=== PATIENT | male | born 1980 | race Caucasian/White ===

== ENCOUNTER 2016-09-12 17:51 | Emergency (ER) | payer BC ==
[~2016-09-12] VITALS: Wt 54.4 kg
[~2016-09-12 17:51] MED LIST: CEPHALEXIN500 M1 PO; ELIMITE5% T; Motrin,Rufen800 MG PO; PENICILLIN-VK500 MG PO; TYLENOL325 M1 PO
[2016-09-12] MEDS ORDERED: NAPROSYN500 MG PO (18:31)
== END 2016-09-12 18:27 | disposition home or self-care (01) ==
LOC: ED 17:51
DX: G56.22 Lesion of ulnar nerve, left upper limb (principal)

== ENCOUNTER → 2017-12-10 | Outpatient (CLI) | payer BC ==
[~2017-12-10] MED LIST changes: +CYCLOBENZAPRINE5 M3 PO; +NAPROSYN500 MG PO
[2017-12-10 09:57] LABS: BASO % 0.3 % (0.0-1.0); EOS # 0.4 10*3/uL (0.0-0.4); EOS % 5.8 % (1.0-4.0); HEMATOCRIT 42.7 % (42.0-52.0); HEMOGLOBIN 13.9 g/dl (14.0-18.0); LYMPH # 1.8 10*3/uL (1.3-4.4); LYMPH % 28.5 % (27.0-41.0); MEAN CELL VOLUME 86.1 fl (80.0-94.0); MEAN CORPUSCULAR HGB CONC 32.6 g/dl (33.0-37.0); MEAN PLATELET VOLUME 10.4 fl (9.6-12.3); MONO # 0.5 10*3/uL (0.1-1.0); MONO % 8.5 % (3.0-9.0); NEUT # 3.6 10*3/uL (2.3-7.9); NEUT % 56.7 % (47.0-73.0); PLATELET COUNT AUTOMATED 233 10*3/uL (130-400); RED BLOOD COUNT 4.96 10*6/uL (4.50-5.90); RED CELL DISTRI WIDTH 12.8 % (0-14.5); WHITE BLOOD COUNT 6.3 10*3/uL (4.8-10.8)
[2017-12-10 10:07] LABS: BUN 19 mg/dl (7-24); CHLORIDE 104 mmol/L (98-107); CHOLESTEROL 150 mg/dL (<200); CREATININE 0.88 mg/dL (0.70-1.30); POTASSIUM 3.7 mmol/L (3.5-5.1); SGOT/AST 17 IU/L (3-35); SGPT/ALT 25 U/L (12-78); SODIUM 139 mmol/L (136-145); TRIGLYCERIDES 56 mg/dl (<150); VLDL CHOLESTEROL 11 mg/dL (6-40)
[2017-12-10 10:17] LABS: ALKALINE PHOSPHATASE 69 U/L (45-117); HDL CHOLESTEROL 67 mg/dl (40-60); LDL CHOLESTEROL 72 mg/dL (9-159); TOTAL PROTEIN 7.6 gm/dL (6.4-8.2)
[2017-12-10 10:31] LABS: FREE T4 0.82 ng/dl (0.76-1.46)
[2017-12-10 10:42] LABS: VITAMIN D, 25-HYDROXY 19.4 ng/mL (30-100)
== END | disposition home or self-care (01) ==
LOC: RESCLI 01:47
PROVIDERS: Internal Medicine
DX: M40.46 Postural lordosis, lumbar region (principal); R03.0 Elevated blood-pressure reading, without diagnosis of hypertension; G89.29 Other chronic pain; Z88.8 Allergy status to other drugs, medicaments and biological substances

== ENCOUNTER → 2017-12-24 | Outpatient (CLI) | payer BC | END | disposition home or self-care (01) | LOC: RESCLI 03:45 | DX: M54.9 Dorsalgia, unspecified (principal); G89.29 Other chronic pain; Z88.8 Allergy status to other drugs, medicaments and biological substances ==

== ENCOUNTER 2018-01-08 18:29 | Emergency (ER) | payer BC ==
[~2018-01-08] VITALS: Wt 68.0 kg
[~2018-01-08 18:29] MED LIST changes: -CYCLOBENZAPRINE5 M3 PO
[2018-01-08] MEDS ORDERED: CYCLOBENZAPRINE5 M3 PO (18:33)
[2018-01-08 18:54] LABS: BASO % 0.1 % (0.0-1.0); HEMATOCRIT 47.8 % (42.0-52.0); HEMOGLOBIN 15.9 g/dl (14.0-18.0); LYMPH # 0.7 10*3/uL (1.3-4.4); MEAN CELL VOLUME 83.9 fl (80.0-94.0); MEAN CORPUSCULAR HGB 27.9 pg (27.0-31.0); MEAN CORPUSCULAR HGB CONC 33.3 g/dl (33.0-37.0); MEAN PLATELET VOLUME 9.9 fl (9.6-12.3); MONO # 1.1 10*3/uL (0.1-1.0); MONO % 6.4 % (3.0-9.0); NEUT # 15.6 10*3/uL (2.3-7.9); NEUT % 89.2 % (47.0-73.0); PLATELET COUNT AUTOMATED 253 10*3/uL (130-400); RED CELL DISTRI WIDTH 12.2 % (0-14.5); WHITE BLOOD COUNT 17.5 10*3/uL (4.8-10.8)
[2018-01-08 19:04] LABS: ACT PARTIAL THROMBO TIME 21.2 SECONDS (20.8-31.5); INTERNATIONAL NORM RATIO 1.1 (2.0-3.5)
[2018-01-08 19:09] LABS: ALBUMIN 4.3 gm/dl (3.1-4.5); ALKALINE PHOSPHATASE 85 U/L (45-117); BUN 15 mg/dl (7-24); CHLORIDE 101 mmol/L (98-107); CREATININE 1.16 mg/dL (0.70-1.30); LIPASE 97 U/L (73-393); POTASSIUM 3.9 mmol/L (3.5-5.1); SGOT/AST 13 IU/L (3-35); SGPT/ALT 22 U/L (12-78); SODIUM 137 mmol/L (136-145)
[2018-01-08 21:17] LABS: BILIRUBIN NEGATIVE (NEGATIVE); BLOOD NEGATIVE (NEGATIVE); CLARITY CLEAR (CLEAR); COLOR YELLOW (YELLOW); GLUCOSE NEGATIVE (NEGATIVE); KETONE 1+ (NEGATIVE); LEUKO ESTERASE NEGATIVE (NEGATIVE); NITRITE NEGATIVE (NEGATIVE); SPECIFIC GRAVITY <= 1.005 (1.005-1.030); UROBILINOGEN 0.2 E.U./dl (0.2-1.0)
[2018-01-08 21:27] LABS: BACTERIA 1+; EPITHELIAL CELLS 0-2; WBC 0-2 wbc/hpf (0-5)
== END 2018-01-08 22:10 ==
LOC: ED 18:29
PROVIDERS: Emergency Medicine
DX: K38.1 Appendicular concretions (principal); R51 Headache; Z79.1 Long term (current) use of non-steroidal anti-inflammatories (NSAID)

== ENCOUNTER → 2018-02-04 | Outpatient (CLI) | payer BC ==
[~2018-02-04] MED LIST changes: +CYCLOBENZAPRINE5 M3 PO
--- NOTE | ~2018-02-04 | EKG ---
[place], [place] ELECTROCARDIOGRAM REPORT NAME: BRITTANY FLORES UNIT #: [id number] ROOM: DOCTOR: EPIPHANY DRAFT REPORT BIRTHDATE: [birth year] [facility] Test Date: 2018-02-04 Test Time: 09:46:55 Pat Name: BRITTANY FLORES Department: Room: Gender: Panel Saw Operator: Joan Alexandra : 1980 Requested By: PRISCILA SU Order Number: [id number] Reading MD: Viet Saez MD Measurements Intervals Rose Rate: 44 P: 30 DE: 126 QRS: 9 QRSD: 111 T: 46 QT: 437 QTc: 374 Interpretive Statements Sinus bradycardia RSR' in V1 or V2, probably normal variant ST elev, probable normal early repol pattern No previous ECG available for comparison Electronically Signed On 02-04-2018 19:32:10 PST by Viet Saez MD CM:EKGRPT:ELECTROCARDIOGRAM REPORT 5 31 PRISCILA MCKENNA DRAFT REPORT PRISCILA SU MD
== END | disposition home or self-care (01) ==
LOC: RESCLI 03:30
DX: Z09 Encounter for follow-up examination after completed treatment for conditions other than malignant neoplasm (principal); R00.1 Bradycardia, unspecified; Z88.8 Allergy status to other drugs, medicaments and biological substances

== ENCOUNTER → 2018-02-11 | Outpatient (CLI) | payer BC ==
--- NOTE | ~2018-02-11 | HM ---
[place], [place] HOLTER MONITOR REPORT NAME: BRITTANY FLORES UNIT #: [id number] ROOM: DOCTOR: SIERRA CARLOS MD BIRTHDATE: [birth year] DOS: 02/11/2018 24-HOUR HOLTER MONITOR REPORT REFERRING PHYSICIAN: Dr. Bolton and ____ INDICATION: Bradycardia. 24-hour Holter monitor was reviewed. FINDINGS: 1. Baseline rhythm was normal sinus, average heart rate 66 beats per minute. Minimum heart rate was 44 beats per minute. Maximum heart rate was 119 beats per minute. 2. Supraventricular activity: The patient noted to have 10 isolated PACs. 3. Ventricular activity: The patient noted to have 334 isolated PVCs. No other arrhythmia. 4. No significant blocks, pauses or bradycardia. 5. No diary was returned. SUMMARY OF FINDINGS: Unremarkable 24-hour Holter monitor with rare PVCs only. SIERRA CARLOS MD CM:HOLTER:HOLTER MONITOR REPORT [id number] SIERRA CARLOS MD
== END | disposition home or self-care (01) ==
LOC: CARD 02-09 10:00
DX: R00.1 Bradycardia, unspecified (principal)

== ENCOUNTER 2020-05-06 03:11 | Emergency (ER) | payer BC ==
[~2020-05-06] VITALS: Ht 165.1 cm; Wt 72.6 kg
== END 2020-05-06 06:48 | disposition home or self-care (01) ==
LOC: ED 03:11
DX: S01.511A Laceration without foreign body of lip, initial encounter (principal); S01.81XA Laceration without foreign body of other part of head, initial encounter; M79.642 Pain in left hand; Z79.899 Other long term (current) drug therapy; Y04.1XXA Assault by human bite, initial encounter; Y93.89 Activity, other specified; Y92.098 Other place in other non-institutional residence as the place of occurrence of the external cause; Y99.8 Other external cause status

== ENCOUNTER 2020-05-14 15:23 | Emergency (ER) | payer BC | END 2020-05-14 15:50 | disposition home or self-care (01) | LOC: ED 15:23 | DX: S01.511D Laceration without foreign body of lip, subsequent encounter (principal); S05.31XD Ocular laceration without prolapse or loss of intraocular tissue, right eye, subsequent encounter; Z79.899 Other long term (current) drug therapy; X58.XXXD Exposure to other specified factors, subsequent encounter ==

== ENCOUNTER 2022-11-13 16:43 | Emergency (ER) | payer SELFPAY ==
[~2022-11-13] VITALS: Ht 165.1 cm; Wt 80.7 kg
[2022-11-13] MEDS ORDERED: PROTONIX40 MG PO (17:29)
[2022-11-13] MEDS ORDERED: AMOX-CLAV 875-1 EACH PO (17:31)
== END 2022-11-13 17:37 | disposition home or self-care (01) ==
LOC: ED 16:43
DX: K21.9 Gastro-esophageal reflux disease without esophagitis (principal); H66.92 Otitis media, unspecified, left ear; Z98.890 Other specified postprocedural states; Z20.822 Contact with and (suspected) exposure to COVID-19

== ENCOUNTER 2023-09-07 22:41 | Emergency (ER) | payer SELFPAY ==
[~2023-09-07] VITALS: Ht 162.5 cm; Wt 66.2 kg
[~2023-09-07 22:41] MED LIST changes: +AMOX-CLAV 875-1 EACH PO; +PROTONIX40 MG PO
[2023-09-08] MEDS ORDERED: PREDNISONE20 M1 PO (00:59)
[2023-09-08] MEDS ORDERED: methylPREDNISolone sod succ 125 MG VIAL IM ONE (01:00)
== END 2023-09-08 01:01 | disposition home or self-care (01) ==
LOC: ED 22:41
DX: J20.8 Acute bronchitis due to other specified organisms (principal); Z20.822 Contact with and (suspected) exposure to COVID-19; Z98.890 Other specified postprocedural states

== ENCOUNTER 2024-02-28 07:49 | Emergency (ER) | payer OTHER ==
[~2024-02-28] VITALS: Ht 165.1 cm; Wt 79.9 kg
[~2024-02-28 07:49] MED LIST changes: +PREDNISONE20 M1 PO
[2024-02-28] MEDS ORDERED: MG-AL HYDROXIDE/SIMETICONE 30 ML UDC PO STA (08:15)
[2024-02-28] MEDS ORDERED: Lidocaine Hydrochloride 15 ML UDC PO STA (08:15)
[2024-02-28] MEDS ORDERED: Dicyclomine Hydrochloride 20 MG/10 ML OSYR PO STA (08:15)
[2024-02-28 08:30] LABS: BASO % 0.3 % (0.0-1.0); EOS # 0.4 10*3/uL (0.0-0.4); EOS % 3.7 % (1.0-4.0); HEMATOCRIT 43.5 % (42.0-52.0); MEAN CELL VOLUME 85.5 fl (80.0-94.0); MEAN CORPUSCULAR HGB 26.9 pg (27.0-31.0); MEAN CORPUSCULAR HGB CONC 31.5 g/dl (33.0-37.0); MEAN PLATELET VOLUME 9.6 fl (9.6-12.3); MONO # 0.8 10*3/uL (0.1-1.0); MONO % 6.8 % (3.0-9.0); NEUT # 8.3 10*3/uL (2.3-7.9); NEUT % 70.2 % (47.0-73.0); PLATELET COUNT AUTOMATED 247 10*3/uL (130-400); RED BLOOD COUNT 5.09 10*6/uL (4.50-5.90); RED CELL DISTRI WIDTH 13.4 % (0-14.5); WHITE BLOOD COUNT 11.9 10*3/uL (4.8-10.8)
[2024-02-28 08:58] LABS: ALKALINE PHOSPHATASE 91 U/L (46-116); BUN 18 mg/dl (9-23); CHLORIDE 107 mmol/L (98-107); SGPT/ALT 20 U/L (5-49); TOTAL PROTEIN 7.2 gm/dL (6.0-8.0)
[2024-02-28 09:25] LABS: BILIRUBIN Negative (Negative); BLOOD Negative (Negative); CLARITY Clear (Clear); COLOR Yellow (Yellow); GLUCOSE Negative (Negative); KETONE Negative (Negative); LEUKO ESTERASE Negative (Negative); NITRITE Negative (Negative); PH 5.5 (4.5-8.0); SPECIFIC GRAVITY 1.025 (1.001-1.030); UROBILINOGEN 0.2 E.U./dl (0.0-1.0)
[2024-02-28 09:47] LABS: BACTERIA TRACE; MUCOUS 1+
== END 2024-02-28 10:21 | disposition home or self-care (01) ==
LOC: ED 07:49
PROVIDERS: Nurse Practitioner Family
DX: K82.9 Disease of gallbladder, unspecified (principal); K21.9 Gastro-esophageal reflux disease without esophagitis